=== PATIENT | male | born 1995 | race Caucasian/White ===

== ENCOUNTER 2018-12-11 05:10 | Day surgery (SDC) | payer OTHER ==
[~2018-12-11] VITALS: Ht 175.3 cm; Wt 82.0 kg
[2018-12-11] VITALS (9 sets, daily range): BP systolic 102–141; BP diastolic 52–83; PULSE 64–94; TEMP 97.9
[2018-12-11] MEDS ORDERED: NEURONTIN400 MG/CAP PO (05:31)
--- NOTE | 2018-12-11 11:35 | NUR ---
PATIENT BACK FROM PACU AFTER PROCEDURE. DRESSINGS IN PLACE. PATIENT DROWSY BUT AROUSABLE TO NAME. VS APPEAR STABLE. WANTS TO CALL MOTHER. WILL GET FOOD AND DRINK FOR PATIENT.
--- NOTE | 2018-12-11 11:45 | NUR ---
PATIENT NOW HAS FOOD AND DRINK. NO S/S OF BLEEDING. NO COMPLAINTS AT THIS TIME. AWAKE AND TALKING TO MOTHER ON PHONE.
--- NOTE | 2018-12-11 12:00 | NUR ---
NO COMPLAINTS WITH FOOD AND DRINK. PATIENT IS WANTING TO TRY TO VOID. WILL ASSIST PATIENT TO BATHROOM.
--- NOTE | 2018-12-11 12:22 | NUR ---
PATIENT AMBULATED TO BATHROOM. PATIENT VOIDED SUCCESSFULLY. AMBULATED BACK TO BED WITHOUT ASSIST. PATIENT WOULD LIKE TO SIT ON EDGE OF BED. NO COMPLAINTS. WILL CONTINUE TO MONITOR. FOLLOW UP APPTS MADE. NO PAIN MEDS RX AVAILABLE AFTER DISCHARGE. WILL CONTACT DR TO GET PRESCRIPTION.
--- NOTE | 2018-12-11 12:30 | NUR ---
PATIENT APPEARS TO BE SLEEPING, WAITING FOR DR. RODRIGUEZ TO BE DONE WITH A CASE AND THEN HE WILL WRITE A PRESCRIPTION FOR PATIENT. VS APPEAR STABLE. WILL CONTINUE TO MONITOR.
--- NOTE | 2018-12-11 12:45 | NUR ---
PATIENT APPEARS TO BE SLEEPING, STILL WAITING ON PRESCRIPTION. VS APPEAR STABLE. WILL CONTINUE TO MONITOR. WILL DISCHARGE PATIENT SOON SCRIPT IS HERE.
--- NOTE | 2018-12-11 13:00 | NUR ---
PATIENT RESTING IN BED, VS APPEAR STABLE. WILL CONTINUE TO MONITOR. WILL DISCHARGE SOON SCRIPT IN WRITTEN AND SIGNED BY DR. RODRIGUEZ.
--- NOTE | 2018-12-11 13:15 | NUR ---
PRESCRIPTION SIGNED. WILL DISCHARGE PATIENT.
== END 2018-12-11 13:36 | disposition home or self-care (01) ==
LOC: SDCO 05:10
DX: K40.90 Unilateral inguinal hernia, without obstruction or gangrene, not specified as recurrent (principal); N43.3 Hydrocele, unspecified; N50.812 Left testicular pain; N50.811 Right testicular pain; N50.89 Other specified disorders of the male genital organs; N50.3 Cyst of epididymis; F17.210 Nicotine dependence, cigarettes, uncomplicated
CPT/HCPCS: C1781; J0690; J1100; J2175; J2405; J2704; J3010; J7120